=== PATIENT | male | born 2000 | race Caucasian/White ===

== ENCOUNTER 2023-09-08 14:02 | Outpatient (REF) | payer OTHER, SELFPAY ==
--- NOTE | ~2023-09-08 | MR_ITS ---
EXAMINATION: MR KNEE WITHOUT CONTRAST, LEFT CLINICAL INFORMATION: Left knee pain. COMPARISON: None available. TECHNIQUE: MRI of the knee without contrast was performed using routine sequences on a high-field scanner. FINDINGS: MENISCI: Medial Meniscus: Intact Lateral Meniscus: Intact LIGAMENTS: Cruciate: Intact Collateral: There is laxity of the MCL with marked edema signal around the distal fibers near the insertion on the medial tibial metaphysis, most consistent with a tear. The distal extent of the tear is only partially imaged. LCL complex is normal. EXTENSOR MECHANISM: Intact ARTICULAR CARTILAGE/BONE: Patellofemoral Compartment: Normal Medial Compartment: Normal Lateral Compartment: Normal JOINT FLUID AND BURSAE: Trace Dawn's cyst. No joint effusion. A multilocular synovial cyst extends proximally off of the aforementioned Dawn's cyst, measuring 6 cm in length and 1.5 x 0.7 cm in cross-section. There is a small amount of fluid in the pes anserine bursa and MCL bursa which is likely reactive to the aforementioned MCL tear. MR/MR knee LT wo con IMPRESSION: 1. High-grade tear of the MCL at the tibial insertion. 2. Intact menisci. No acute osteochondral findings. 3. Trace Dawn's cyst with a multilocular synovial cyst extending proximally off of the Dawn's cyst. 4. Minimal pes anserine MCL bursitis, likely reactive to the aforementioned MCL tear.
== END 2023-09-08 14:03 | disposition home or self-care (01) ==
LOC: HO.MRI 14:02
PROVIDERS: Visit Provider Family Medicine Sports Medicine
DX: S80.912A Unspecified superficial injury of left knee, initial encounter (principal)
CPT/HCPCS: 73721

== ENCOUNTER 2024-01-21 12:57 | Outpatient (REF) | payer OTHER, SELFPAY ==
--- NOTE | ~2024-01-21 | MR_ITS ---
EXAMINATION: MR SHOULDER WITHOUT CONTRAST, RIGHT CLINICAL INFORMATION: Right shoulder pain. Patient reports AC joint separation August 2023 COMPARISON: None available. TECHNIQUE: MRI of the shoulder without contrast was performed on a high-field scanner. FINDINGS: ROTATOR CUFF: Intact. No muscle atrophy or fatty infiltration. BICEPS: Normal. CORACOACROMIAL ARCH: The undersurface of the acromion is curved with no subacromial spur. The acromioclavicular joint is normal. No MRI signs of previous AC joint separation. Trace fluid in subacromial subdeltoid bursa compatible with a mild bursitis of. LABRUM/CAPSULE: Normal. GLENOHUMERAL JOINT/MARROW: Normal. MR/MR shoulder RT wo con IMPRESSION: 1. Trace fluid in subacromial subdeltoid bursa compatible with a mild bursitis. 2. No MRI signs of previous AC joint separation.
== END 2024-01-21 12:58 | disposition home or self-care (01) ==
LOC: HO.MRI 12:57
PROVIDERS: Visit Provider Family Medicine
DX: M25.511 Pain in right shoulder (principal)
CPT/HCPCS: 73221